=== PATIENT | female | born 1995 | race Caucasian/White ===

== ENCOUNTER 2017-01-06 12:37 | Emergency (ER) | payer OTHER ==
[~2017-01-06] VITALS: Ht 160 cm; Wt 63.7 kg
[2017-01-06] MEDS ORDERED: SODIUM CHLORIDE 0.9% 1,000ML IVBOLUS ONE (13:30)
[2017-01-06 13:48] LABS: HEMATOCRIT 41.9 % (34.6-47.8); HEMOGLOBIN 14.2 g/dL (11.7-16.4)
[2017-01-06 14:00] LABS: BLOOD UREA NITROGEN 10 mg/dL (7-18)
[2017-01-06 14:05] LABS: ASPARTATE AMINO TRANSFERASE 21 U/L (15-37)
[2017-01-06 14:16] LABS: PATH.CAST-FLAG NOT PRESENT; SPERM-FLAG NOT PRESENT; SRC-FLAG NOT PRESENT; XTAL-FLAG NOT PRESENT; YLC-FLAG NOT PRESENT
[2017-01-06 16:43] VITALS: BP 120/74
== END 2017-01-06 16:45 | disposition home or self-care (01) ==
LOC: ED 16:39
DX: N30.00 Acute cystitis without hematuria (principal); R10.2 Pelvic and perineal pain
CPT/HCPCS: 36415; 76830; 80053; 81001; 83690; 84703; 85025; 87086; 96360; 99285; J7030